=== PATIENT | female | born 2000 | race Hispanic/Latino ===

== ENCOUNTER 2023-11-06 07:42 | Emergency (ER) | payer SELFPAY ==
[2023-11-06] MEDS ORDERED: AZITHROMYCIN 250 MG TAB ONE (08:25)
[2023-11-06] MEDS ORDERED: ACETAMINOPHEN 325 MG TABLET ONE (08:25)
[2023-11-06 08:42] LABS: SARS-CoV-2 Antigen CONTROL BLUE LINE VIS/BG OK; SARS-CoV-2 Antigen Rapid Res Negative (Negative)
--- NOTE | 2023-11-06 09:01 | ER ---
Nurse's Notes [facility] Name: Tamiko Tillman Age: 23 yrs Sex: Female : 2000 Arrival Date: 11/06/2023 Time: 07:42 Bed 12 Private MD: Diagnosis: Acute upper respiratory infection, unspecified;Fever, unspecified Presentation: 11/05 07:53 Chief complaint: Patient states: Fever, KILPATRICK, dry throat, some nausea, pressure to eyes ll1 for 1 week, got worse this past weekend. Coronavirus screen: Client denies travel out of the [place] in the last 14 days. Ebola Screen: Patient denies travel to an Ebola-affected area in the 21 days before illness onset. Initial Sepsis Screen: Does the patient meet any 2 criteria? No. Patient's initial sepsis screen is negative. Does the patient have a suspected source of infection? No. Patient's initial sepsis screen is negative. Risk Assessment: Do you want to hurt yourself or someone else? Patient reports no desire to harm self or others. 07:53 Method Of Arrival: Ambulatory 1 07:53 Acuity: LOUISA 4 1 08:17 Onset of symptoms was October 30, 2023. 1 Triage Assessment: 07:53 General: Appears in no apparent distress. Behavior is calm, cooperative, appropriate ll1 for age, Reports fever for feeling ill for fatigue for. Respiratory: Reports cough that is. 09:11 Pain: Denies pain. 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 - Infectious Disease History:: Denies. - Family history:: not pertinent. - Social history:: Smoking status: Patient denies any tobacco usage or history of. Screenin:34 [facility] ED Fall Risk Assessment (Adult) History of falling in the last 3 months, kc6 including since admission No falls in past 3 months (0 pts) Confusion or Disorientation No (0 pts) Intoxicated or Sedated No (0 pts) Impaired Gait No (0 pts) Mobility Assist Device Used No (0 pt) Altered Elimination No (0 pt) Score/Fall Risk Level 0 - 2 = Low Risk. Abuse screen: Denies threats or abuse. Denies injuries from another. Nutritional screening: No deficits noted. Tuberculosis screening: No symptoms or risk factors identified. Assessment: 08:06 Reassessment: No changes from previously documented assessment. Patient and/or family ll1 updated on plan of care and expected duration. Pain level reassessed. Patient is alert, oriented x 3, equal unlabored respirations, skin warm/dry/pink. 08:35 Reassessment: No changes from previously documented assessment. Patient and/or family ll1 updated on plan of care and expected duration. Pain level reassessed. Patient is alert, oriented x 3, equal unlabored respirations, skin warm/dry/pink. 09:10 Reassessment: No changes from previously documented assessment. Patient and/or family ll1 updated on plan of care and expected duration. Pain level reassessed. Patient is alert, oriented x 3, equal unlabored respirations, skin warm/dry/pink. Vital Signs: 08:17 BP 184 / 96; Pulse 110; Resp 18; Pulse Ox 96% on R/A; Weight 167.83 kg; Height 5 ft. 8 ll1 in. ; 08:21 BP 157 / 96; Temp 100.1(O); ld1 08:48 BP 144 / 85; Pulse 105; ll1 09:09 BP 144 / 85; Pulse 99; Resp 17; Temp 99.5(O); Pulse Ox 96% on R/A; ll1 08:17 Body Mass Index 56.26 (167.83 kg, 172.72 cm) ll1 ED Course: 07:49 Patient arrived in ED. mg5 07:51 Iglesia Cali MD is Attending Physician. fiordaliza 07:52 Arm band placed on Patient placed in an exam room, on a stretcher. ll1 07:53 Triage completed. ll1 07:55 Griselda Hair RN is Primary Nurse. kc6 08:06 SARS RAPID Sent. ll1 08:06 Strep Sent. ll1 08:06 Flu Sent. ll1 08:19 Flu Sent. ll1 08:19 Strep Sent. ll1 08:19 SARS RAPID Sent. ll1 08:34 Patient has correct armband on for positive identification. Bed in low position. Call kc6 light in reach. Side rails up X 1. Pulse ox on. NIBP on. Door closed. Noise minimized. Lights dimmed. Warm blanket given. Pillow given. 09:10 Provided Education on: ER procedures and process. ll1 09:10 No provider procedures requiring assistance completed. Patient did not have IV access ll1 during this emergency room visit. Administered Medications: 08:33 Drug: Acetaminophen PO 650 mg PO once Route: PO; kc6 09:11 Follow up: Response: No adverse reaction; Temperature is decreased ll1 08:33 Drug: AZITHromycin PO 500 mg PO once Route: PO; kc6 09:11 Follow up: Response: No adverse reaction ll1 Medication: 09:11 VIS not applicable for this client. ll1 Outcome: 09:01 Discharge ordered by . fiordaliza 09:10 Discharged to home ambulatory, ll1 09:10 Condition: stable 09:10 Discharge instructions given to patient, Instructed on discharge instructions, follow up and referral plans. medication usage, Demonstrated understanding of instructions, follow-up care, medications, Prescriptions given X 3, 09:11 Patient left the ED. ll1 Signatures: Iglesia Cali MD MD cha Lewis, Lynsay RN RN ll1 Juliet Robles RN RN ld1 Griselda Hair RN RN kc6 Kelsy Key mg5 Corrections: (The following items were deleted from the chart) 08:18 07:53 Chief complaint: Patient states: Fever, cough ll1 ll1
--- NOTE | 2023-11-06 09:01 | EDPHYS ---
Physician Documentation [facility] Name: Tamiko Tillman Age: 23 yrs Sex: Female : 2000 Arrival Date: 11/06/2023 Time: 07:42 Bed 12 Private MD: ED Physician Iglesia Cali HPI: 11/05 08:03 This 23 yrs old Female presents to ER via Ambulatory with complaints of Flu fiordaliza Symptoms. 08:03 fever , uri, body aches. The patient or guardian reports cough, described as mild. fiordaliza Onset: The symptoms/episode began/occurred 2 day(s) ago. Severity of symptoms: At their worst the symptoms were mild, in the emergency department the symptoms are unchanged. Modifying factors: The symptoms are alleviated by nothing, the symptoms are aggravated by damp environment. The patient reports fever, that was measured at 100 degrees Fahrenheit. Modifying factors: there are no obvious modifying factors. Associated signs and symptoms: Pertinent positives: rhinorrhea, sore throat. 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 - Infectious Disease History:: Denies. - Family history:: not pertinent. - Social history:: Smoking status: Patient denies any tobacco usage or history of. ROS: 08:03 Constitutional: Negative for fever, chills, and weight loss, Eyes: Negative for injury, fiordaliza pain, redness, and discharge, ENT: Negative for injury, pain, and discharge, Neck: Negative for injury, pain, and swelling, Cardiovascular: Negative for chest pain, palpitations, and edema, Respiratory: Negative for shortness of breath, cough, wheezing, and pleuritic chest pain, Abdomen/GI: Negative for abdominal pain, nausea, vomiting, diarrhea, and constipation, Back: Negative for injury and pain, : Negative for injury, bleeding, discharge, and swelling, MS/Extremity: Negative for injury and deformity, Skin: Negative for injury, rash, and discoloration, Neuro: Negative for headache, weakness, numbness, tingling, and seizure, Psych: Negative for depression, anxiety, suicide ideation, homicidal ideation, and hallucinations, Allergy/Immunology: Negative for hives, rash, and allergies, Endocrine: Negative for neck swelling, polydipsia, polyuria, polyphagia, and marked weight changes, Hematologic/Lymphatic: Negative for swollen nodes, abnormal bleeding, and unusual bruising, Exam: 08:03 Constitutional: This is a well developed, well nourished patient who is awake, alert, fiordaliza and in no acute distress. Head/Face: Normocephalic, atraumatic. Eyes: Pupils equal round and reactive to light, extra-ocular motions intact. Lids and lashes normal. Conjunctiva and sclera are non-icteric and not injected. Cornea within normal limits. Periorbital areas with no swelling, redness, or edema. ENT: Nares patent. No nasal discharge, no septal abnormalities noted. Tympanic membranes are normal and external auditory canals are clear. Oropharynx with no redness, swelling, or masses, exudates, or evidence of obstruction, uvula midline. Mucous membranes moist. Neck: Trachea midline, no thyromegaly or masses palpated, and no cervical lymphadenopathy. Supple, full range of motion without nuchal rigidity, or vertebral point tenderness. No Meningismus. Chest/axilla: Normal chest wall appearance and motion. Nontender with no deformity. No lesions are appreciated. Cardiovascular: Regular rate and rhythm with a normal S1 and S2. No gallops, murmurs, or rubs. Normal PMI, no JVD. No pulse deficits. Respiratory: Lungs have equal breath sounds bilaterally, clear to auscultation and percussion. No rales, rhonchi or wheezes noted. No increased work of breathing, no retractions or nasal flaring. Abdomen/GI: Soft, non-tender, with normal bowel sounds. No distension or tympany. No guarding or rebound. No evidence of tenderness throughout. Back: No spinal tenderness. No costovertebral tenderness. Full range of motion. Skin: Warm, dry with normal turgor. Normal color with no rashes, no lesions, and no evidence of cellulitis. MS/ Extremity: Pulses equal, no cyanosis. Neurovascular intact. Full, normal range of motion. Neuro: Awake and alert, GCS 15, oriented to person, place, time, and situation. Cranial nerves II-XII grossly intact. Motor strength 5/5 in all extremities. Sensory grossly intact. Cerebellar exam normal. Normal gait. Psych: Awake, alert, with orientation to person, place and time. Behavior, mood, and affect are within normal limits. Vital Signs: 08:17 BP 184 / 96; Pulse 110; Resp 18; Pulse Ox 96% on R/A; Weight 167.83 kg; Height 5 ft. 8 ll1 in. ; 08:21 BP 157 / 96; Temp 100.1(O); ld1 08:48 BP 144 / 85; Pulse 105; ll1 09:09 BP 144 / 85; Pulse 99; Resp 17; Temp 99.5(O); Pulse Ox 96% on R/A; ll1 08:17 Body Mass Index 56.26 (167.83 kg, 172.72 cm) ll1 MDM: 07:52 Patient medically screened. fiordaliza 08:05 Differential diagnosis: viral Infection, bacterial infection, URI, bronchitis, fiordaliza pneumonia. Differential Diagnosis flu, Obstructed Airway Bronchitis Influenza Upper Respiratory Infection Sinusitis Pharyngitis Otitis Media. Data reviewed: vital signs, nurses notes, lab test result(s). Consideration of Admission/Observation Escalation of care including admission/observation considered. I considered the following discharge prescriptions or medication management in the emergency department Medications were administered in the Emergency Department. See MAR. Test considered but Not performed: Labs: no cbc, comp. Care significantly affected by the following chronic conditions: none. Counseling: I had a detailed discussion with the patient and/or guardian regarding the historical points, exam findings, and any diagnostic results supporting the discharge/admit diagnosis, lab results, the need for outpatient follow up, for definitive care, a family practitioner. 11/05 07:52 Order name: Flu [facility] 11/05 07:52 Order name: Strep [facility] 11/05 07:52 Order name: SARS RAPID [facility] 11/05 08:33 Order name: Throat Culture EDMS Administered Medications: 08:33 Drug: Acetaminophen PO 650 mg PO once Route: PO; kc6 09:11 Follow up: Response: No adverse reaction; Temperature is decreased ll1 08:33 Drug: AZITHromycin PO 500 mg PO once Route: PO; kc6 09:11 Follow up: Response: No adverse reaction ll1 Disposition Summary: 11/06/23 09:01 Discharge Ordered Notes: Location: Home fiordaliza Problem: new fiordaliza Symptoms: have improved fiordaliza Condition: Stable fiordaliza Diagnosis - Acute upper respiratory infection, unspecified fiordaliza - Fever, unspecified fiordaliza Followup: fiordaliza - With: Private Physician - When: 2 - 3 days - Reason: Recheck today's complaints, Continuance of care, Re-evaluation by your physician Discharge Instructions: - Discharge Summary Sheet fiordaliza - Fever, Adult fiordaliza - Upper Respiratory Infection, Adult fiordaliza - Cool Mist Vaporizer fiordaliza - Upper Respiratory Infection, Adult, [id number] fiordaliza - Cough, Adult, [id number] fiordaliza - Cough, Adult fiordaliza Forms: - Medication Reconciliation Form fiordaliza - Antibiotic Education fiordaliza - Prescription Opioid Use fiordaliza - Patient Portal Instructions [facility] - Leadership Thank You Letter [facility] - Work release form ll1 Prescriptions: - Audelia-D 12 Hour 60-120 mg Oral Tablet Sustained Release 12 hr - take 1 tablet ORAL route every 12 hours As needed; 20 tablet; Refills: 0, [facility] Product Selection Permitted - Tessalon Perles 100 mg Oral capsule - take 2 capsule ORAL route every 8 hours As needed; 30 capsule; Refills: 0, [facility] Product Selection Permitted - Zithromax Z-John 250 mg Oral Tablet - take 1 tablet ORAL route as directed for 5 days Day 1 - take two (2) tablets [facility] one time. Day 2, 3, 4 , 5 take one (1) tablet once daily.; 6 tablet; Refills: 0, Product Selection Permitted Signatures: Dispatcher [employer] EDMS Iglesia Cali MD MD cha Lewis, Lynsay, RN RN ll1 Griselda Hair, RN RN kc6 Corrections: (The following items were deleted from the chart) 07:53 07:53 Influenza Screen (A \T\ B)+BA.LAB.BRZ ordered. EDMS EDMS 07:53 07:53 Group A Streptococcus Rapid Sc+BA.LAB.BRZ ordered. EDMS EDMS 07:53 07:53 SARS-COV-2 Antigen Rapid+I.LAB.BRZ ordered. EDMS EDMS
[2023-11-07 18:40] VITALS: BP 144/85; TEMP 99.5; O2SAT 96
== END 2023-11-06 09:11 | disposition home or self-care (01) ==
LOC: ER 07:42
DX: J06.9 Acute upper respiratory infection, unspecified (principal); R50.9 Fever, unspecified; Z11.52 Encounter for screening for COVID-19
CPT/HCPCS: 36415; 87070; 87081; 87804; 87811; 99284